=== PATIENT | male | born 1990 | race Caucasian/White ===

== ENCOUNTER 2016-10-24 00:26 | Emergency (ER) | payer SELFPAY ==
[~2016-10-24] VITALS: Ht 172.7 cm; Wt 67.6 kg
[2016-10-24] MEDS ORDERED: HYDROmorphone 1 MG/ML, 1ML ONE (01:50)
[2016-10-24] MEDS ORDERED: KETOROLAC 30 MG/1 ML ONE (01:50)
[2016-10-24] MEDS ORDERED: LIDOCAINE 1%, 20ML ONE (01:51)
[2016-10-24] MEDS ORDERED: ONDANSETRON ODT 4 MG ONE (01:51)
[2016-10-24] MEDS ORDERED: KETOROLAC 30 MG/1 ML IM ONE (02:00)
[2016-10-24] MEDS ORDERED: LIDOCAINE 1%, 20ML INFIL ONE (02:00)
[2016-10-24] MEDS ORDERED: ONDANSETRON ODT 4 MG PO ONE (02:00)
[2016-10-24] MEDS ORDERED: HYDROmorphone 1 MG/ML, 1ML IM ONE (02:00)
[2016-10-24 03:14] VITALS: BP 125/69
[2016-10-24] MEDS ORDERED: OXYcodone/APAP 5/325MG TABLET ONE (03:24)
[2016-10-24] MEDS ORDERED: OXYcodone/APAP 10/325MG TABLET PO ONE (03:30)
[2016-10-24] MEDS ORDERED: OXYcodone/APAP 10/325MG TABLET ONE (03:38)
== END 2016-10-24 03:47 | disposition home or self-care (01) ==
LOC: EDBD 00:26 → ED 01:21
DX: S02.2XXA Fracture of nasal bones, initial encounter for closed fracture (principal); S01.412A Laceration without foreign body of left cheek and temporomandibular area, initial encounter; G89.11 Acute pain due to trauma; K02.9 Dental caries, unspecified; R51 Headache; Y08.89XA Assault by other specified means, initial encounter; Y93.89 Activity, other specified; Y92.89 Other specified places as the place of occurrence of the external cause; Y99.8 Other external cause status
CPT/HCPCS: 12013; 21315; 70486; 96372; 99284; J1170; J1885; Q0162